=== PATIENT | female | born 1985 | race Two or more races ===

== ENCOUNTER 2018-08-09 16:15 | Inpatient (IN) | payer OTHER ==
[~2018-08-09] VITALS: Ht 154.9 cm; Wt 66.2 kg
[2018-08-13] MEDS ORDERED: PRENATAL TABLE1 EAC1 PO (11:32)
== END 2018-08-15 14:07 | disposition home or self-care (01) | DRG 807 ==
LOC: LDR 08-13 11:10 → OB/GYN 08-13 11:10
PROVIDERS: ADMIT Obstetrics & Gynecology Maternal & Fetal Medicine
PROC: 10E0XZZ Delivery of Products of Conception, External Approach (ICD-10-PCS; principal; 2018-08-13)
PROC: 0HQ9XZZ Repair Perineum Skin, External Approach (ICD-10-PCS; 2018-08-13)
PROC: 0W8NXZZ Division of Female Perineum, External Approach (ICD-10-PCS; 2018-08-13)
PROC: 4A1HXCZ Monitoring of Products of Conception, Cardiac Rate, External Approach (ICD-10-PCS; 2018-08-13)
DX: O70.1 Second degree perineal laceration during delivery (principal); Z37.0 Single live birth; Z3A.37 37 weeks gestation of pregnancy; Z22.330 Carrier of Group B streptococcus

== ENCOUNTER 2018-08-13 10:48 | Outpatient (CLI) | payer OTHER ==
[2018-08-13] MEDS ORDERED: PRENATAL TABLE1 EAC1 PO (11:32)
== END 2018-08-13 11:55 | disposition left against medical advice (07) ==
LOC: NST 10:48
DX: Z34.83 Encounter for supervision of other normal pregnancy, third trimester (principal)

== ENCOUNTER 2022-01-16 11:33 | Inpatient (IN) | payer OTHER ==
[~2022-01-16] VITALS: Ht 154.9 cm; Wt 3.2 kg
[~2022-01-16 11:33] MED LIST: PRENATAL TABLE1 EAC1 PO
== END 2022-01-19 12:30 | disposition home or self-care (01) | DRG 788 ==
LOC: O/R 11:33 → OB/GYN 11:33 → LDR 11:33 → O/R 14:24 → LDR 14:24 → EDSTATUS 15:15 → OB/GYN 15:55
PROVIDERS: ADMIT Obstetrics & Gynecology; ATTEND Obstetrics & Gynecology
PROC: 4A1HXCZ Monitoring of Products of Conception, Cardiac Rate, External Approach (ICD-10-PCS; 2022-01-16)
PROC: 10D00Z1 Extraction of Products of Conception, Low, Open Approach (ICD-10-PCS; principal; 2022-01-16 15:00)
DX: O32.1XX0 Maternal care for breech presentation, not applicable or unspecified (principal); Z3A.38 38 weeks gestation of pregnancy; Z37.0 Single live birth; Z20.822 Contact with and (suspected) exposure to COVID-19